=== PATIENT | female | born 1960 | race Caucasian/White ===

== ENCOUNTER 2016-12-01 13:08 | Emergency (ER) | payer MEDICAID ==
[~2016-12-01] VITALS: Ht 157.5 cm; Wt 63.5 kg
[~2016-12-01 13:08] MED LIST: COREG3.125 MG PO; GLUCOPHAGE1000 MG PO; QVAR HFA M80 MCG/ACT IH
[2016-12-01 13:12] VITALS: BP 173/88
--- NOTE | 2016-12-01 14:19 | NUR ---
PATIENT LEFT WITHOUT BEING SEEN BY DR. FAULKNER. NO FURTHER CARE PROVIDED FOR PATIENT.
== END 2016-12-01 14:19 | disposition left against medical advice (07) ==
LOC: MED 13:08
DX: R07.89 Other chest pain (principal); Z53.21 Procedure and treatment not carried out due to patient leaving prior to being seen by health care provider

== ENCOUNTER 2018-08-31 09:06 | Emergency (ER) | payer OTHER ==
[~2018-08-31] VITALS: Ht 152.4 cm; Wt 64.9 kg
[~2018-08-31 09:06] MED LIST changes: +BECL0.089 IH; +CARV3.12 PO; -COREG3.125 MG PO; -GLUCOPHAGE1000 MG PO; +METF1000 PO; -QVAR HFA M80 MCG/ACT IH
[2018-08-31 09:08] VITALS: BP 148/89
--- NOTE | 2018-08-31 09:21 | NUR ---
Patient ambulated to bed 2.
--- NOTE | 2018-08-31 09:25 | NUR ---
PATIENT PRESENTS TO ED WITH C/O BILATERAL FLANK PAIN AND COUGH . PT STATES SHE HAS BEEN HAVING PAIN FOR 2 WEEKS NOW . DENIES N/V/D; SKIN IS PINK/WARM/DRY; AAOX4 WITH EVEN AND STEADY GAIT; LUNGS CLEAR BL; HR EVEN AND REGULAR; PT DENIES ANY FEVER, CP, SOB, AT THIS TIME; PATIENT STATES PAIN OF 9/10 AT THIS TIME; VSS; PATIENT POSITIONED FOR COMFORT; HOB ELEVATED; BEDRAILS UP X2; BED DOWN. ER MD MADE AWARE OF PT STATUS.
[2018-08-31] MEDS ORDERED: KETOROLAC 60 MG/2 ML VIAL IM ONE (10:10)
[2018-08-31 10:51] VITALS: BP 155/98
--- NOTE | 2018-08-31 10:52 | NUR ---
Patient discharged with v/s stable. Written and verbal after care instructions given and explained. Patient alert, oriented and verbalized understanding of instructions. Ambulatory with steady gait. All questions addressed prior to discharge. ID band removed. Patient advised to follow up with PMD. Rx of NORCO, MOTRIN, ZOFRAN given. Patient educated on indication of medication including possible reaction and side effects. Opportunity to ask questions provided and answered.
== END 2018-08-31 10:52 | disposition home or self-care (01) ==
LOC: MED 09:06
DX: R10.9 Unspecified abdominal pain (principal); R05 Cough; R50.9 Fever, unspecified; R11.0 Nausea; J45.909 Unspecified asthma, uncomplicated; E11.9 Type 2 diabetes mellitus without complications; I10 Essential (primary) hypertension; E78.5 Hyperlipidemia, unspecified; Z90.49 Acquired absence of other specified parts of digestive tract; Z79.84 Long term (current) use of oral hypoglycemic drugs; Z79.899 Other long term (current) drug therapy
CPT/HCPCS: 81002; 81025; 82948; 96372; 99283; J1885